=== PATIENT | male | born 1980 | race Hispanic/Latino ===

== ENCOUNTER 2016-10-11 12:50 | Observation (INO) | payer OTHER ==
[~2016-10-11] VITALS: Ht 177.8 cm; Wt 77.1 kg
--- NOTE | 2016-10-11 12:55 | NUR ---
PT TO ED WITH C/O "UNABLE TO PEE, IT HAS HAPPENED BEFORE, I WENT TO THE WALK IN AND THEY GAVE ME CIPRO AND FLOMAX, HELPING A LITTLE". "THIS ALWAYS HAPPENS WHEN I'M SUPER STRESSED".
--- NOTE | 2016-10-11 13:19 | NUR ---
URINE CUP PROVIDED FOR SAMPLE
--- NOTE | 2016-10-11 13:34 | ED GI/GU/ABDOMINAL COMPLAINT ---
History of Present Illness General Chief Complaint: Male Genitourinary Problems Stated Complaint: UNABLE TO URINATE Source: patient, old records Exam Limitations: no limitations Allergies Coded Allergies: No Known Allergies (10/11/16) Reconcile Medications Ciprofloxacin HCl 500 MG TABLET 1 TAB PO BID ANTIBIOTIC, INFECTION (Reported) Ciprofloxacin HCl (Cipro) 500 MG TABLET 1 TAB PO BID UTI Tamsulosin HCl 0.4 MG CAP.ER.24H 1 CAP PO DAILY URINE (Reported) Triage Note: PT TO ED WITH C/O "UNABLE TO PEE, IT HAS HAPPENED BEFORE, I WENT TO THE WALK IN AND THEY GAVE ME CIPRO AND FLOMAX, HELPING A LITTLE". "THIS ALWAYS HAPPENS WHEN I'M SUPER STRESSED". Triage Nurses Notes Reviewed? yes Onset: Gradual Duration: week(s): (3-4), constant, getting worse Timing: recent history Quality/Severity: moderate, PRESSURE Severity Numbers: 5 Location: suprapubic Radiation: no radiation Activities at Onset: none Prior Abdominal Problems: similar symptoms No Modifying Factors: none Associated Symptoms: DENIES HPI: 36-year-old male with no known medical history who presents to emergency room with a history over the past 3-4 weeks of progressively worsening urinary retention. The patient states she's had similar episodes before when he is over stressed. He went to an urgent care 5 days ago and was prescribed Flomax and Cipro however he states he did not have his urine tested at the time. He reports the positive urgency, and states that he saw what appeared to be a small amount of blood in his urine today. He is complaining of suprapubic abdominal pressure that is nonradiating. No fever no chills no nausea no vomiting. He states the episodes have resolved on their own in the past. 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 He denies any back pain, no family history as far as he is aware of prostate cancer. The patient is sexually active with his , he denies history of sexual transmitted disease. No penile or scrotal pain. (HUNG JULIO,ALYSHA) Vital Signs & Intake/Output Vital Signs & Intake/Output Vital Signs Date Time Temp Pulse Resp B/P Pulse O2 O2 Flow FiO2 Ox Delivery Rate 10/11 1710 92 16 117/74 97 Room Air 10/11 1704 96.2 10/11 1511 59 18 123/69 98 Room Air 10/11 1256 98.1 88 20 142/91 99 Room Air Room Air Past History Travel History Traveled to [place] past 21 day No Medical History Any Pertinent Medical History? 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 No (ALYSHA BURKS) Review of Systems Review of Systems Constitutional: Reports: see HPI. All Other Systems: Reviewed and Negative Comments Review of systems: See HPI, All other systems negative. Constitutional, no chills no fever, no malaise HEENT: No visual changes no sore throat no congestion, no ear pain Cardiovascular: No chest pain , no palpitation , Skin, no jaundice no rashes, no change in skin Respiratory: No dyspnea no cough no sputum GI: No nausea no vomiting, no diarrhea, no bloating/constipation : No dysuria hematuria, no frequency, no discharge Muscle skeletal: No joint pain, no joint swelling, no back pain, no neck pain, Neurologic: No numbness, no headache Psych: No stress Heme/endocrine: No bruising no bleeding Immunology: No lymphadenopathy, (ALYSHA BURKS) Physical Exam Physical Exam General Appearance: well developed/nourished, no apparent distress, alert, awake Gastrointestinal: normal bowel sounds, soft, non-tender Comments: Well-developed well-nourished person in no acute distress HEENT: Normal EENT exam; PERRL, EOMI, HEAD is atraumatic. moist mucous membranes. Neck: Supple, normal range of motion Back: Nontender, no CVA tenderness. Full range of motion Cardiovascular: Regular rate and rhythms no murmurs rubs Respiratory: No respiratory distress. Patient speaking in full complete sentences. Breath sounds clear to auscultation bilaterally: NO W/R/R Abdomen: Soft, nontender nondistended, no appreciable organomegaly. Normal bowel sounds. No rebound/guarding, Extremity: No edema, full range of motion of extremities Neuro: Alert oriented x3, motor sensory normal. There were no obvious focal neurologic abnormalities. Skin: No appreciable rash on exposed skin, skin is warm and dry. Psych: Mood and affect is normal, memory and judgment is normal. Core Measures ACS in differential dx? No Severe Sepsis Present: No Septic Shock Present: No (HUNG JULIO,ALSYHA) Progress Differential Diagnosis: urinary retention and UTI pyelonephritis kidney stone urethritis section transmitted disease malignancy prostatitis, bph, anxiety Diagnostic Imaging: Viewed by Me: CT Scan. Discussed w/RAD: CT Scan. Radiology Impression: PATIENT: ADEOLA LOPEZ PRESENT AGE: 36 PATIENT ACCOUNT NO: [id number] : 82 LOCATION: [facility] ORDERING PHYSICIAN: ALYSHA JULIO SERVICE DATE: 10/11/16 EXAM TYPE: CAT - CT ABD & PELVIS W/O IV CONTRAS EXAMINATION: CT ABDOMEN AND PELVIS WITHOUT CONTRAST CLINICAL INFORMATION: Hematuria. Urinary retention. Evaluate for kidney stone. COMPARISON: None. TECHNIQUE: Multidetector volumetric imaging was performed from the superior aspect of the liver through the pubic symphysis. Sagittal and coronal reformatted images were obtained on the technologist workstation. DLP: 316.07 mGy-cm. FINDINGS: LUNG BASES: The visualized lung bases are unremarkable. LIVER, GALLBLADDER, AND BILIARY TREE: The liver is normal in size, shape, and attenuation. No focal hepatic lesion on noncontrast imaging. No biliary ductal dilatation is present. The gallbladder is unremarkable with no evidence of radiopaque gallstones, gallbladder wall thickening, or obvious pericholecystic inflammatory changes. PANCREAS, SPLEEN, ADRENAL GLANDS: Unremarkable on noncontrast imaging. KIDNEYS AND URETERS: The kidneys are normal in size, shape, and attenuation. No hydronephrosis, hydroureter, or calculi seen. No perinephric stranding. BLADDER/URETHRA/PELVIC ORGANS: There is a 0.5 cm calcification with mean attenuation values of 607 Hounsfield units in the midline base of the prostate gland, in the expected region of the prostatic urethra, raising the suspicion of a calculus lodged within the urethra. Alternatively, this calculus may be within adjacent prostatic parenchyma. Prostate is otherwise unremarkable. Seminal vesicles are symmetric. GASTROINTESTINAL TRACT: There is nonspecific mild fluid distention of the loop of jejunum in the left mid abdomen with a few air-fluid levels. No significant wall thickening or surrounding hyperemia is seen in these findings are of uncertain etiology and significance. Remainder of the small and large bowel are unremarkable. The appendix is unremarkable. ABDOMINAL WALL: There is a small umbilical hernia, containing fat only. LYMPH NODES, VASCULAR: Unremarkable. OSSEOUS STRUCTURES: Unremarkable. IMPRESSION: 1. Dense 0.5 cm calcification seen in the expected location of the proximal prostatic urethra. Given the clinical symptoms of urinary retention and hematuria, findings are suspicious for a proximal prostatic urethral stone. Close clinical correlation is requested. 2. Nonspecific mild fluid distention of a loop of jejunum in the left mid abdomen with a few scattered air-fluid levels. Findings may represent a localized ileus. No associated inflammatory changes are seen in the surrounding soft tissues. 3. Small fat-containing umbilical hernia. DICTATED BY: KATY JAMES MD DATE/ TIME DICTATED:10/11/161444 BOARD WINDER:ALLA DATE/TIME TRANSCRIBED: 10/11/161444 CONFIDENTIAL, DO NOT COPY WITHOUT APPROPRIATE AUTHORIZATION. < Electronically signed in Other Vendor System> SIGNED BY: KATY JAMES MD 10/11/16 1501 Initial ED EKG: none (ALYSHA BURKS) Plan of Care: Orders Procedure Date/time Status Giles, Insertion/Removal/Asses 10/11 1522 Active CULTURE,URINE 10/11 1522 Active URINALYSIS 10/11 1329 Complete CBC WITHOUT DIFFERENTIAL 10/11 1329 Complete BASIC METABOLIC PANEL 10/11 1329 Complete Laboratory Tests 10/11/16 1340: Urine Color YEL, Urine Clarity CLEAR, Urine pH 6.0, Ur Specific [employer] 1.025, Urine Protein 30 H, Urine Ketones NEG, Urine Nitrite NEG, Urine Bilirubin NEG, Urine Urobilinogen 0.2, Ur Leukocyte Esterase TRACE H, Ur Microscopic SEDIMENT EXAMINED, Urine RBC 3-5, Urine WBC RARE, Ur Epithelial Cells FEW, Urine Hemoglobin SMALL H, Urine Glucose NEG 10/11/16 1338: Anion Gap 10, Estimated GFR > 60, BUN/Creatinine Ratio 21.3, Glucose 90, Calcium 9.6, CBC w Diff NO MAN DIFF REQ, RBC 5.22, MCV 92.3, MCH 31.1 H, RDW 12.5, MPV 8.8, Gran % 63.0, Lymphocytes % 23.3, Monocytes % 6.8, Eosinophils % 6.2 H, Basophils % 0.7, Absolute Granulocytes 4.4, Absolute Lymphocytes 1.6, Absolute Monocytes 0.5, Absolute Eosinophils 0.4, Absolute Basophils 0, PUBS MCHC 33.7 Microbiology 10/11 1522 URINE ROUT: Urine Culture - ORD Labs ordered old records reviewed and ordered case discussed with Dr. patel patient denies N clinic for pain when case d/w dr mcgarry regarding the patient's CAT scan she advised to place a Giles catheter and follow up in the office this week 10/11/2016 3:43:49 PM Giles catheter was attempted to be placed, that was unsuccessfully passed through obstruction with return of immediate sharon blood and significant pain the catheter was removed a repeat call was placed to urology offered at this time [address] mcgarry once again, she will come in to eval pt and take to OR for cystoscopy/stone retreival,toradol 30mg iv ordered (ALYSHA BURKS) Departure Departure Time of Disposition: 1622 Disposition: STILL A PATIENT Condition: Stable Clinical Impression Primary Impression: Urethral stone Secondary Impressions: Urinary retention Referrals: PATIENT HAS NO PRIMARY CARE DR (PCP/Family) SANDI NICHOLS MD Additional Instructions: FOLLOW UP WITH DR. BOYLE UROLOGIST ON THURSDAY TO HAVE GILES CATHETER REMOVED. CIPRO DIRECTED FOR PROPHLYAXIS. RETURN AT ANYTIME SOONER WITH ANY CONCERNS- WORSENING PAIN, DECREAESED URINE OUTPUT IN GILES, FEVER, CHILLS OR ANY OTHER CONCERNS. Departure Forms: Customer Survey General Discharge Information Prescriptions: Current Visit Scripts Ciprofloxacin HCl (Cipro) 1 TAB PO BID #14 TAB (ALYSHA BURKS) PA/ENVIRONMENTAL FIELD SERVICES TECHNICIAN Co-Sign Statement Statement: ED Attending supervision documentation- [] I saw and evaluated the patient. I have also reviewed all the pertinent lab results and diagnostic results. I agree with the findings and the plan of care as documented in the PA's/ENVIRONMENTAL FIELD SERVICES TECHNICIAN's documentation. [X] I have reviewed the ED Record and agree with the PA's/ENVIRONMENTAL FIELD SERVICES TECHNICIAN's documentation. [] Additions or exceptions (if any) to the PAs/ENVIRONMENTAL FIELD SERVICES TECHNICIAN's note and plan are summarized below: [] (ALENA JESSICA,BOB Larson)
--- NOTE | 2016-10-11 13:42 | NUR ---
BLOODWORK OBTAINED AND SENT VIA S/S. CLEAR TOP URINE SENT TO LAB AND PLASTICS PRODUCTION MACHINE OPERATOR INFORMED OF MINIMAL SAMPLE AVAILABLE FOR TESTING. PT OFFERS NO COMPLAINTS AT THIS TIME. INFORMED WAITING PROVIDED
[2016-10-11 14:04] LABS: ABSOLUTE BASOPHIL COUNT 0 /CUMM (0.0-0.2); ABSOLUTE EOSINOPHIL COUNT 0.4 /CUMM (0.0-0.7); ABSOLUTE GRANULOCYTE CT 4.4 /CUMM (1.4-6.5); ABSOLUTE LYMPH COUNT 1.6 /CUMM (1.2-3.4); ABSOLUTE MONOCYTE COUNT 0.5 /CUMM (0.10-0.60); BASOPHIL % 0.7 % (0.0-2.0); EOSINOPHIL % 6.2 % (0-5); HEMATOCRIT 48.2 % (42-52); MEAN CORPUSCULAR HGB 31.1 PG (27.0-31.0); MEAN CORPUSCULAR HGB CONC 33.7 G/DL (33.0-37.0); MEAN CORPUSCULAR VOLUME 92.3 FL (80.0-94.0); MEAN PLATELET VOLUME 8.8 FL (7.4-10.4); PLATELET COUNT 247 /CUMM (130-400); RBC DISTRIBUTION WIDTH 12.5 % (11.5-14.5); RED BLOOD CELL CT 5.22 /CUMM (4.70-6.10)
[2016-10-11] MEDS ORDERED: CIPROFLOXACIN500 M2 PO (14:13)
[2016-10-11] MEDS ORDERED: TAMSULOSIN HCL0.4 M1 PO (14:14)
--- NOTE | 2016-10-11 14:20 | NUR ---
NORI PERSAUD AT BEDSIDE TO DISCUSS TEST RESULTS AND DISPO
--- NOTE | 2016-10-11 14:44 | NUR ---
PT TO AND FROM CT
--- NOTE | 2016-10-11 15:01 | CT SCAN REPORT ---
EXAMINATION: CT ABDOMEN AND PELVIS WITHOUT CONTRAST CLINICAL INFORMATION: Hematuria. Urinary retention. Evaluate for kidney stone. COMPARISON: None. TECHNIQUE: Multidetector volumetric imaging was performed from the superior aspect of the liver through the pubic symphysis. Sagittal and coronal reformatted images were obtained on the technologist workstation. DLP: 316.07 mGy-cm. FINDINGS: LUNG BASES: The visualized lung bases are unremarkable. LIVER, GALLBLADDER, AND BILIARY TREE: The liver is normal in size, shape, and attenuation. No focal hepatic lesion on noncontrast imaging. No biliary ductal dilatation is present. The gallbladder is unremarkable with no evidence of radiopaque gallstones, gallbladder wall thickening, or obvious pericholecystic inflammatory changes. PANCREAS, SPLEEN, ADRENAL GLANDS: Unremarkable on noncontrast imaging. KIDNEYS AND URETERS: The kidneys are normal in size, shape, and attenuation. No hydronephrosis, hydroureter, or calculi seen. No perinephric stranding. BLADDER/URETHRA/PELVIC ORGANS: There is a 0.5 cm calcification with mean attenuation values of 607 Hounsfield units in the midline base of the prostate gland, in the expected region of the prostatic urethra, raising the suspicion of a calculus lodged within the urethra. Alternatively, this calculus may be within adjacent prostatic parenchyma. Prostate is otherwise unremarkable. Seminal vesicles are symmetric. GASTROINTESTINAL TRACT: There is nonspecific mild fluid distention of the loop of jejunum in the left mid abdomen with a few air-fluid levels. No significant wall thickening or surrounding hyperemia is seen in these findings are of uncertain etiology and significance. Remainder of the small and large bowel are unremarkable. The appendix is unremarkable. ABDOMINAL WALL: There is a small umbilical hernia, containing fat only. LYMPH NODES, VASCULAR: Unremarkable. OSSEOUS STRUCTURES: Unremarkable. IMPRESSION: 1. Dense 0.5 cm calcification seen in the expected location of the proximal prostatic urethra. Given the clinical symptoms of urinary retention and hematuria, findings are suspicious for a proximal prostatic urethral stone. Close clinical correlation is requested. 2. Nonspecific mild fluid distention of a loop of jejunum in the left mid abdomen with a few scattered air-fluid levels. Findings may represent a localized ileus. No associated inflammatory changes are seen in the surrounding soft tissues. 3. Small fat-containing umbilical hernia.
[2016-10-11] MEDS ORDERED: CIPRO500 M1 PO (15:23)
--- NOTE | 2016-10-11 15:36 | NUR ---
ATTEMPTED TO INSERT 18 BENGALI GILES CATHETER PER UROLOGIST'S REQUEST. EXTREME RESISTANCE MET. SMALL AMOUNT OF BLOOD NOTED IN DRAINAGE TUBE. PT TOLERATED WELL BUT WAS EXTREMELY PAINFUL
--- NOTE | 2016-10-11 17:12 | NUR ---
TAKEN TO OR BY ANESTHESIA
--- NOTE | 2016-10-11 19:28 | Cons- Urology ---
General Information and HPI Consulting Request Date of Consult: 10/11/16 Requested By: ER Reason for Consult: urinary retention Source of Information: patient Exam Limitations: no limitations History of Present Illness: 36 yo male with an onset of sudden inability to urinate. he has had this happen 3-4 times before over the course of 5yrs. He had no dysuria or N/V/F/C. NO flank pain. 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 He has not urinated since this morning. A foey catheter was attempted to be placed in the ER but this was unsuccessful. A CT scan suggested a stone was in the penile urethra. He has no hx of UTIs or prostate infections, hematuria or kidney stones. He believes his father has had kidney stones. He has a long smoking hx since age 20yo. (1/2ppd for 16 yrs). Allergies/Medications Allergies: Coded Allergies: No Known Allergies (10/11/16) Home Med List: Ciprofloxacin HCl 500 MG TABLET 1 TAB PO BID ANTIBIOTIC, INFECTION (Reported) Ciprofloxacin HCl (Cipro) 500 MG TABLET 1 TAB PO BID UTI Tamsulosin HCl 0.4 MG CAP.ER.24H 1 CAP PO DAILY URINE (Reported) Current Medications: Current Medications Sig/Durga Start time Last Medication Dose Route Stop Time Status Admin Ketorolac 0 .STK-MED ONE 10/11 1602 DC Tromethamine .ROUTE Ketorolac 30 MG ONCE ONE 10/11 1600 DC 10/11 Tromethamine IV 10/11 1601 1604 Past History Medical History Blood Transfusion Hx: No Neurological: NONE EENT: NONE Cardiovascular: NONE Respiratory: NONE Gastrointestinal: NONE Hepatic: NONE Renal: NONE Musculoskeletal: NONE (left shoulder dislocation) Psychiatric: NONE Endocrine: NONE Blood Disorders: NONE Cancer(s): 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 Home Who Do You Live With? spouse Services at Home: None Primary Language: Honduran Smoking Status: Current Everyday Smoker ETOH Use: occasional use Illicit Drug Use: marijuana Living Will? unknown Power of Glass Washer And Carrier/HCP? unknown Other Social History: studying for bar Functional Ability ADLs Independent: dressing, eating, toileting, bathing. Ambulation: independent IADLs Independent: shopping, housework, finances, food prep, telephone, transportation , medication admin. Employment History Employment: Employed Retired? no Review of Systems Review of Systems Constitutional: Reports: no symptoms. EENTM: Reports: no symptoms. Cardiovascular: Reports: no symptoms. Respiratory: Reports: no symptoms. GI: Reports: no symptoms. Musculoskeletal: Reports: no symptoms. Skin: Reports: no symptoms. Neurological/Psychological: Reports: no symptoms. Hematologic/Endocrine: Reports: no symptoms. Immunologic/Allergic: Reports: no symptoms. Exam & Diagnostic Data Vital Signs and I&O Vital Signs Date Time Temp Pulse Resp B/P Pulse O2 O2 Flow FiO2 Ox Delivery Rate 10/11 1710 92 16 117/74 97 Room Air 10/11 1704 96.2 10/11 1511 59 18 123/69 98 Room Air 10/11 1256 98.1 88 20 142/91 99 Room Air Room Air Intake & Output 10/11 1600 10/11 0800 10/11 0000 10/10 1600 10/10 0800 10/10 0000 Intake Total Output Total 10 Balance -10 Output, Urine 10 Patient 77.111 kg Weight Physical Exam General Appearance: well developed/nourished, no apparent distress, alert, awake , anxious, comfortable Head: atraumatic, normal appearance Eyes: Bilateral: normal appearance. Ears, Nose, Throat: normal ENT inspection Neck: normal inspection Respiratory: normal breath sounds, no respiratory distress Gastrointestinal: soft, non-tender, distention Rectal: deferred Back: normal inspection Extremities: normal inspection, no edema Neurologic/Psych: awake, alert, oriented x 3, normal gait Cranial Nerves: normal hearing, normal speech Skin: intact, normal color, warm/dry Reproductive: Normal male genitalia Last 24 Hours of Labs: Laboratory Tests 10/11 10/11 1340 1338 Chemistry Sodium (137 - 145 mmol/L) 139 Potassium (3.5 - 5.1 mmol/L) 4.5 Chloride (98 - 107 mmol/L) 104 Carbon Dioxide (22 - 30 mmol/L) 26 Anion Gap (5 - 16) 10 BUN (9 - 20 mg/dL) 17 Creatinine (0.7 - 1.2 mg/dL) 0.8 Estimated GFR (>60 ml/min) > 60 BUN/Creatinine Ratio (7 - 25 %) 21.3 Glucose (65 - 99 mg/dL) 90 Calcium (8.4 - 10.2 mg/dL) 9.6 Hematology CBC w Diff NO MAN DIFF REQ WBC (4.8 - 10.8 /CUMM) 7.0 RBC (4.70 - 6.10 /CUMM) 5.22 Hgb (14.0 - 18.0 G/DL) 16.2 Hct (42 - 52 %) 48.2 MCV (80.0 - 94.0 FL) 92.3 MCH (27.0 - 31.0 PG) 31.1 H RDW (11.5 - 14.5 %) 12.5 Plt Count (130 - 400 /CUMM) 247 MPV (7.4 - 10.4 FL) 8.8 Gran % (42.2 - 75.2 %) 63.0 Lymphocytes % (20.5 - 51.1 %) 23.3 Monocytes % (1.7 - 9.3 %) 6.8 Eosinophils % (0 - 5 %) 6.2 H Basophils % (0.0 - 2.0 %) 0.7 Absolute Granulocytes (1.4 - 6.5 /CUMM) 4.4 Absolute Lymphocytes (1.2 - 3.4 /CUMM) 1.6 Absolute Monocytes (0.10 - 0.60 /CUMM) 0.5 Absolute Eosinophils (0.0 - 0.7 /CUMM) 0.4 Absolute Basophils (0.0 - 0.2 /CUMM) 0 PUBS MCHC (33.0 - 37.0 G/DL) 33.7 Urines Urine Color (YEL,AMB,STR) YEL Urine Clarity (CLEAR) CLEAR Urine pH (5.0 - 8.0) 6.0 Ur Specific [place] (1.001 - 1.035) 1.025 Urine Protein (NEG,<30 MG/DL) 30 H Urine Ketones (NEG) NEG Urine Nitrite (NEG) NEG Urine Bilirubin (NEG) NEG Urine Urobilinogen (0.1 - 1.0 EU/dl) 0.2 Ur Leukocyte Esterase (NEG) TRACE H Ur Microscopic SEDIMENT EXAMINED Urine RBC (0 - 5 /HPF) 3-5 Urine WBC (0 - 2 /HPF) RARE Ur Epithelial Cells (NONE,FEW) FEW Urine Hemoglobin (NEG) SMALL H Urine Glucose (N MG/DL) NEG Imaging Results: CT scan with question of prostatic urethra stone Assessment/Plan Assessment/Plan 36yo male with a hx of urinary retention multiple times in the last 5 yrs who presented to the ER for the same reason. CT scan suggested an obstructing urethral stone. Unsuccessful attemtp at passing a tyler in the ER. Patient refused further attempts at the bedside. He was consented for OR for possible stone extraction, possible catheter placement. Risks, benefits, alternatives given and all questions answered. He has been NPO since this morning. Problem List: 1. Urinary retention Consult Acknowledgment - Thank you for your consult request.
--- NOTE | 2016-10-11 19:36 | Operative Report ---
Operative/Inv Procedure Report Surgery Date: 10/11/16 Name of Procedure: cystoscopy, stone extraction Pre-Operative Diagnosis: urinary retention Post-Operative Diagnosis: same Estimated Blood Loss: 50ml to 100ml Surgeon/Management Trainer: XAVI WAY MD Anesthesia: laryngeal mask airway Drains: 22fr 3 way coude Specimens: prostate chips Complications: no urethral stone found. multiple false passages in the urethra so difficult to find true urethral opening Condition: stable Operative Indication: urinary retention Operative/Procedure Note Note: 36yo male with multiple episodes of urinary retention in the last 5 yrs. He has one presently and requires OR intervention as bedside intervention failed. He was consented for cystoscopy, stone extraction. R/B/A given and all questions answered. Patient taken to operating room and placed in the supine position. Time out was performed and LMA anesthesia was given. No antibiotics were given as he took cipro earlier in the day. He was placed in the dorsal lithotomy position and prepped and draped in the standard sterile fashion. A cystoscope was placed in the urethra and attempted to be placed in the bladder but multiple false passages were identified. A wire ultimately had to be used to try and find the true urethral passage. An ulstrasound was also used for guidance a the suprapubic area. Eventually the cystoscope was passed and the bladder was entered. There were no stones in the bladder. The bladder was globally inspected and bilateral ureteral orifices were easily identified. NO trabeculation or diverticula. The prostate was then viewed and found to be very high riding and with a tight bladder neck. This was resected using the resectoscope. The prostate was not enlarged but it was occluding the opening of the bladder. Once the opening seemed to be adequate without resecting too much tissue bleeding was coagulated. The ureters were not injured. A 3way coude 22fr catheter was placed due to continual bleeding even after all bleeders were coagulated. patient tolerated the procedure well. Findings: small prostate but with obstructing anatomy with tight bladder neck no urethral stone or prostatic stone or bladder stone. Discharge Disposition: PACU
[2016-10-11 20:06] VITALS: BP 110/63
[2016-10-11 22:25] VITALS: BP 110/86
[2016-10-12 07:25] VITALS: BP 112/80
--- NOTE | 2016-10-12 12:35 | PN- Urology ---
Subjective Subjective: Comfortable, No distress Objective Vital Signs and I&Os Vital Signs Date Time Temp Pulse Resp B/P Pulse O2 O2 Flow FiO2 Ox Delivery Rate 10/12 0725 98.7 67 20 112/80 96 Room Air 10/11 2225 98.0 50 20 110/86 95 Room Air 10/11 2006 94.1 66 18 110/63 95 Room Air 10/11 1710 92 16 117/74 97 Room Air 10/11 1704 96.2 10/11 1511 59 18 123/69 98 Room Air 10/11 1256 98.1 88 20 142/91 99 Room Air Room Air Intake & Output 10/12 1600 10/12 0800 10/12 0000 10/11 1600 10/11 0800 10/11 0000 Intake Total 480 960 Output Total 1100 1050 10 Balance -620 -90 -10 Intake, IV 600 Intake, Oral 480 360 Output, Urine 1100 1050 10 Patient 170 lb 170 lb Weight Back: No CVA tenderness Abd: soft and non tender Genitalia: 3-way tyler in place. CBI running at slow rate. Drainage is clear Extrems: no calf tenderness Assessment/Plan Assessment/Plan Imp: s/p TURBN and tyler placement post op hematuria improved Plan: D/C CBI. Restart if hematuria recurs Continue tyler If urine is clear in AM then voiding trial tomorrow Core Measures/Miscellaneous Venous Thromboembolism VTE Risk Factors: No Risk Factors VTE Contraindications: No Contraindications VTE Prophylaxis Ordered Inpt: Early Ambulation VTE Diagnosis: No Beta Obie Is Beta Obie a Home Med? No Antibiotics Is Patient on Antibiotics? No
[2016-10-12 14:28] VITALS: BP 122/70
[2016-10-12 23:09] VITALS: BP 102/60
[2016-10-13 06:04] VITALS: BP 110/60
--- NOTE | 2016-10-13 06:58 | PN- Urology ---
Subjective Subjective: No distress. Resting comfortably. CBI was shut off yesterday but had to be restarted due to hematuria Objective Vital Signs and I&Os Vital Signs Date Time Temp Pulse Resp B/P Pulse O2 O2 Flow FiO2 Ox Delivery Rate 10/13 0604 98.0 78 20 110/60 95 Room Air 10/12 2309 98.2 86 20 102/60 95 Room Air 10/12 1428 98.7 86 18 122/70 94 Room Air 10/12 0725 98.7 67 20 112/80 96 Room Air Intake & Output 10/13 0800 10/13 0000 10/12 1600 10/12 0800 10/12 0000 10/11 1600 Intake Total 500 600 480 960 Output Total 300 1250 1100 1050 10 Balance 200 -650 -620 -90 -10 Intake, IV 600 Intake, Oral 500 600 480 360 Output, Urine 300 1250 1100 1050 10 Patient 170 lb 170 lb Weight Abd: soft and non tender Genitalia: 3 way ty[address] in [address]. CBI running at slow rate and drainage is clear Extrems: venodynes in place Assessment/Plan Assessment/Plan Imp: s/p TURBN post op hematuria seems improved Plan: Turn off CBI, restart for recurrent hematuria Continue tyler Hopeful for voiding trial tomorrow Core Measures/Miscellaneous Venous Thromboembolism VTE Risk Factors: No Risk Factors VTE Contraindications: No Contraindications VTE Prophylaxis Ordered Inpt: Early Ambulation VTE Diagnosis: No Beta Obie Is Beta Obie a Home Med? No Antibiotics Is Patient on Antibiotics? No
[2016-10-13 14:25] VITALS: BP 125/70
--- NOTE | 2016-10-13 16:15 | NUR ---
CBI STOPPED AT [address] APARICIO ORDER. AT 1030 PINK URINE NOTED IN GILES BAG. NOTIFIED DR. APARICIO OF HEMATURIA AND WAS TOLD NOT TO RESTART CBI AND KEEP AN EYE ON URINE. WILL CONTINUE TO MONITOR.
[2016-10-13 23:30] VITALS: BP 116/68
--- NOTE | 2016-10-14 06:42 | PN- Urology ---
Subjective Subjective: No distress Objective Vital Signs and I&Os Vital Signs Date Time Temp Pulse Resp B/P Pulse O2 O2 Flow FiO2 Ox Delivery Rate 10/13 2330 98.5 73 20 116/68 94 Room Air 10/13 1425 98.2 90 20 125/70 95 Intake & Output 10/14 0800 10/14 0000 10/13 1600 10/13 0800 10/13 0000 10/12 1600 Intake Total 541 734 3828 300 500 600 Output Total 650 600 875 376 859 8896 Balance -500 -190 125 -250 200 -650 Intake, IV 10 Intake, Oral 150 400 750 300 500 600 Intake, Other 250 Number 0 Bowel Movements Output, Urine 650 600 875 115 511 1867 Abd: soft and non tender Genitalia: 3-way tyler in place. CBI off. Urine clear Extrems: no calf tenderness Assessment/Plan Assessment/Plan Imp: s/p TUBN Plan: tyler d/c'ed d/c percocet and benedryl start pyridium and flomax Home later today if voids adequately Core Measures/Miscellaneous Venous Thromboembolism VTE Risk Factors: No Risk Factors VTE Contraindications: No Contraindications VTE Prophylaxis Ordered Inpt: Early Ambulation VTE Diagnosis: No Beta Obie Is Beta Obie a Home Med? No Antibiotics Is Patient on Antibiotics? No
[2016-10-14 06:54] VITALS: BP 116/80
--- NOTE | 2016-10-14 12:30 | NUR ---
CALLED INTO ROOM BY PT, PT C/O PELVIC DISCOMFORT, PT UNABLE TO VOID, PT BLADDER SCANNED FOR 550ML.'S NOTIFIED, MD ORDERED 16 COUDE CATH, PT REQUESTING TO BE KNOCKED OUT FOR GILES INSERTION, PT INFORMED WE DO NOT PUT PATIENTS TO SLEEP ON GEN-MED FOR GILES PLACEMENT. PT'S REQUESTING UROLOGY TO PLACE GILES AND NOT NURSING. MD INFORMED OF ABOVE, PT INFORMED MD NOT IN HOSPITAL, IF HE WANTS MD TO PLACE GILES IT WILL BE IN 1-2 HOURS. CONTINUE TO MONITOR,
[2016-10-14 15:32] VITALS: BP 100/80
--- NOTE | 2016-10-14 18:48 | NUR ---
pt reqesting stool softener stated LBM was three days ago. +bs, tolerating po intake well, call placed to surgical pa at this time.
[2016-10-14 22:20] VITALS: BP 132/84
[2016-10-15 06:27] VITALS: BP 124/80
[2016-10-15 08:48] VITALS: BP 124/80
--- NOTE | 2016-10-15 09:53 | PN- Urology ---
Subjective Subjective: comfortable Objective Vital Signs and I&Os Vital Signs Date Time Temp Pulse Resp B/P Pulse O2 O2 Flow FiO2 Ox Delivery Rate 10/15 0848 65 124/80 10/15 0627 98.1 65 18 124/80 96 Room Air 10/14 2220 98.4 61 20 132/84 95 Room Air 10/14 1532 97.7 72 20 100/80 95 Room Air Intake & Output 10/15 1600 10/15 0800 10/15 0000 10/14 1600 10/14 0800 10/14 0000 Intake Total 800 600 150 410 Output Total 1500 1000 1200 650 600 Balance -1500 -200 -600 -500 -190 Intake, IV 10 Intake, Oral 800 600 150 400 Number 0 Bowel Movements Output, Urine 1500 1000 1200 650 600 Back: no CVA tenderness Abd: soft and nontender Genitalia: tyler in place draining pryidium-colored urine Extrems: no calf tenderness Assessment/Plan Assessment/Plan Imp: urinary retention. Cause not clear Plan: Discharge home with tyler on tamsulosin Office f/u in 5-7 days for voiding trial Core Measures/Miscellaneous Venous Thromboembolism VTE Risk Factors: No Risk Factors VTE Contraindications: No Contraindications VTE Prophylaxis Ordered Inpt: Early Ambulation VTE Diagnosis: No Beta Obie Is Beta Obie a Home Med? No Antibiotics Is Patient on Antibiotics? No
--- NOTE | 2016-10-19 11:20 | Discharge Summary ---
Visit Information Visit Dates Admission Date: 10/11/16 Discharge Date: 10/15/16 Hospital Course Course Attending Physician: XAVI CHRISTINA MD Primary Care Physician: PATIENT HAS NO PRIMARY CARE DR Hospital Course: He was in urinary retention and a tyler could not be placed. He was taken to the OR by Dr Christina. A small resection of the bladder neck/prostate was done and a tyler placed. Multiple false passage were noted in the urethra. He had some post op hematuria which cleared with conservative measures. He was given an inpatient voiding trial but failed. A coude tyler was placed and he was discharged home with the tyler in place, on flomax, and will have an outpatient voiding trial Complications: none Allergies: Coded Allergies: No Known Allergies (10/11/16) Significant Procedures: TURP/TURBN Disposition Summary Disposition Principal Diagnosis: Urinary retention Additional Diagnosis: none Discharge Disposition: home or self care Discharge Instructions General Discharge Information Code Status: Full Code Patient's Diet: Regular Patient's Activity: Light only Follow-Up Instructions/Appts: To call office to arragne outpatient voiding trial Medications at Discharge Discharge Medications: Stop taking the following medications: Ciprofloxacin HCl (Ciprofloxacin HCl) 500 MG TABLET ORAL TWICE DAILY Qty = 14 Ciprofloxacin HCl (Cipro) 500 MG TABLET ORAL TWICE DAILY Qty = 14 Continue taking these medications: Tamsulosin HCl (Tamsulosin HCl) 0.4 MG CAP.ER.24H 1 Capsule ORAL DAILY Qty = 10 Copies To: XAVI CHRISTINA MD
== END 2016-10-15 11:00 ==
LOC: ENRESERVTM → ENRESERVDT → ERH 12:50 → ER-OR 13:02 → ERH 13:02 → ER-OR 18:37 → 2NA 18:37 → ENPENDDIS 18:54 → PACUH 18:54 → 2NA 18:54
PROVIDERS: Physician Assistant Medical; ADMIT Urology
DX: N42.9 Disorder of prostate, unspecified (principal); R33.8 Other retention of urine; N41.9 Inflammatory disease of prostate, unspecified; F17.200 Nicotine dependence, unspecified, uncomplicated
CPT/HCPCS: 74176; 81001; 87086; 88305; 96374; G0378; J0131; J1100; J1170; J1885; J2250; J2405; J3010; J3101

== ENCOUNTER 2016-10-23 19:34 | Emergency (ER) | payer OTHER ==
[~2016-10-23] VITALS: Ht 177.8 cm; Wt 77.1 kg
[~2016-10-23 19:34] MED LIST: CIPRO500 M1 PO; CIPROFLOXACIN500 M2 PO; TAMSULOSIN HCL0.4 M1 PO
--- NOTE | 2016-10-23 21:32 | ED GI/GU/ABDOMINAL COMPLAINT ---
History of Present Illness General Chief Complaint: Male Genitourinary Problems Stated Complaint: UNABLE TO URINATE Source: patient, old records, PCP (UROLOGY) Exam Limitations: no limitations Vital Signs & Intake/Output Vital Signs & Intake/Output Vital Signs Date Time Temp Pulse Resp B/P Pulse O2 O2 Flow FiO2 Ox Delivery Rate 10/23 2138 99.3 91 16 148/75 99 Room Air 10/23 2100 99 10/23 1952 98.8 125 18 168/95 95 Room Air Allergies Coded Allergies: No Known Allergies (10/11/16) Reconcile Medications Tamsulosin HCl 0.4 MG CAP.ER.24H 1 CAP PO DAILY URINE (Reported) Triage Note: PT SIB UROLOGIST FOR C/O URINARY RETENTION. UROLOGIST CALLED STATING PT NEEDS A 16F COUDE PLACED. PT REPORTS HIS GILES WAS REMOVED THIS MORNING AND HE WAS VOIDING WITHOUT ISSUES UNTIL 5PM WHEN HE SUDDENLY WAS UNABLE TO VOID. SINCE THAT TIME HE HAS BEEN PASSING SMALL AMOUNTS OF BLOODY URINE FREQUENTLY AND IS VERY UNCOMFORTABLE ASKING "CAN'T YOU KNOCK ME OUT?" UPON REVIEWING D/C SUMMARY DATED 10/19/16 PT HAD URINARY RETENTION, BEDSIDE GILES WAS UNSUCCESSFUL, GILES EVENTUALLY PLACED IN OR WITH "MULTIPLE FALSE PASSAGES" NOTED IN URETHRA. PT STATING "I THINK THIS IS CRAZY, IT DIDN'T WORK AT ALL LAST TIME, THAT'S WHY I HAD THE SURGERY, HOW DO THEY THINK IT'S GOING TO WORK NOW?" Triage Nurses Notes Reviewed? yes HPI: 36-year-old male with complaints of urinary frequency urgency and hematuria. He was admitted approximately 10 days ago with a stone in the urethra, he is difficult time getting a Giles catheter and had multiple false passages. He had to go to the OR to have a catheter placed. Since then he has had trouble with urinating, he has had another catheter placed because of urinary retention and continued hematuria. He was at the urologist office this morning, had his catheter pulled, he is able to void spontaneously and without difficulty throughout the day today until around 4:00 PM, he had inability to urinate. He is only urinating small amounts of blood and notes that there are small flecks of blood clots noted in the urine. He has pressure sensation in the suprapubic region and states that he is not emptying his bladder fully. He denies any fever or back pain, no nausea no vomiting. (ROYA CARDENAS) Past History Travel History Traveled to [place] past 21 day No Medical History Any Pertinent Medical History? see below for history Neurological: NONE EENT: NONE Cardiovascular: NONE Respiratory: NONE Gastrointestinal: NONE Hepatic: NONE Renal: NONE Musculoskeletal: NONE (left shoulder dislocation) Psychiatric: NONE Endocrine: NONE Blood Disorders: NONE Cancer(s): NONE SOURCING ANALYST/Reproductive: NONE Other Medical Hx: urinary retention issues History of MRSA: No History of VRE: No History of CDIFF: No Influenza Vaccine: 07/17/16 Surgical History Surgical History: cystoscopy, left shoulder surgery for dislocation Psychosocial History Services at Home None What is your primary language Occitan Family History Hx Contributory? No (ROYA CARDENAS) Review of Systems Review of Systems Constitutional: Reports: see HPI. EENTM: Reports: no symptoms. Respiratory: Reports: no symptoms. Cardiovascular: Reports: no symptoms. GI: Reports: no symptoms. Genitourinary: Reports: see HPI. Musculoskeletal: Reports: no symptoms. Skin: Reports: no symptoms. Neurological/Psychological: Reports: no symptoms. Hematologic/Endocrine: Reports: no symptoms. Immunologic/Allergic: Reports: no symptoms. All Other Systems: Reviewed and Negative (ROYA CARDENAS) Physical Exam Physical Exam Gastrointestinal: normal bowel sounds, soft, distention (MILD SUPRAPUBIC) Comments: Well-developed well-nourished Patient appears uncomfortable, pacing in the room. HEENT: Atraumatic, extraocular motion intact Neck: Supple, no lymphadenopathy Back: Nontender no CVA tenderness Respiratory: No respiratory distress Extremities: No edema, full range of motion Neuro: Alert and oriented x3 Psych: Mood affect normal, normal memory normal judgment. Skin: Warm and dry, no rash on exposed skin Core Measures ACS in differential dx? No Severe Sepsis Present: No Septic Shock Present: No (ROYA CARDENAS) Progress Differential Diagnosis: AAA, appendicitis, biliary colic, bowel obstruction, colon cancer, cholecystitis, diverticulitis, epididymitis, esophageal varices, gastritis, hepatitis, hernia, hemorrhoids, ischemic bowel, inflamm bowel dis, Dinora-Mckenna tear, orchitis, pancreatitis, prostatitis, peptic ulcer, PUD/GERD, perforated viscous, pyelonephritis, SBO, STD, testicular torsion, ureterolithiasis, urinary retention, urethritis, UTI/pyelo Plan of Care: Orders Procedure Date/time Status Giles, Insertion/Removal/Asses 10/24 2019 Complete Current Medications Sig/Durga Start time Last Medication Dose Stop Time Status Admin Lidocaine 10 ML ONCE 10/23 0000 NR (Xylocaine 2%) 10/23 2359 Laboratory Tests 10/23/162019: Urine Color Cancelled, Urine Clarity Cancelled, Urine pH Cancelled, Ur Specific [place] Cancelled, Urine Protein Cancelled, Urine Ketones Cancelled, Urine Nitrite Cancelled, Urine Bilirubin Cancelled, Urine Urobilinogen Cancelled, Ur Leukocyte Esterase Cancelled, Ur Microscopic Cancelled, Urine Hemoglobin Cancelled, Urine Glucose Cancelled Microbiology 10/24 2019 URINE ROUT: Urine Culture - CAN Cancelled: Cancelled via OE: NOT NEEDED Initial ED EKG: none Comments: Discussed with Dr. Lex BOYLE, recommend 16 Somali Giles catheter Coude and Urojet's. Throughout patient's stay he isn't back for the the bathroom numerous times, he was able to pass several small approximately 4 cm blood clots, several times. Each time he is felt significantly better. After approximately the third time going to the bathroom passing small blood clots, patient states that his symptoms have resolved and he feels well. He was monitored for several hours with improvement in his symptoms and he did not require a Giles catheter. A post-residual void was performed with the bladder scanner at the bedside by myself, readings were from 98-150 ML's. Patient is comfortable being discharged home at this time, he will follow-up with urologist tomorrow if there are any further concerns. (ROYA CARDENAS) Departure Departure Disposition: HOME OR SELF CARE Condition: Stable Clinical Impression Primary Impression: Hematuria Secondary Impressions: Urinary retention Referrals: LEX BOYLE MD PATIENT HAS NO PRIMARY CARE DR (PCP/Family) Additional Instructions: Please follow up with Dr. Lex willson in his office in [place] tomorrow with any concerns of urinary frequency urgency or continued passing of blood clots. Drink plenty of water. Avoid straining or excessive physical activity for the next few days Departure Forms: Customer Survey General Discharge Information (ROYA CARDENAS) PA/SENIOR SALES MANAGER Co-Sign Statement Statement: ED Attending supervision documentation- [] I saw and evaluated the patient. I have also reviewed all the pertinent lab results and diagnostic results. I agree with the findings and the plan of care as documented in the PA's/SENIOR SALES MANAGER's documentation. x I have reviewed the ED Record and agree with the PA's/SENIOR SALES MANAGER's documentation. [] Additions or exceptions (if any) to the PAs/SENIOR SALES MANAGER's note and plan are summarized below: [] (MARIA DE JESUS JESSICA,ISABELLA)
[2016-10-23 21:39] VITALS: BP 148/75
== END 2016-10-23 21:40 ==
LOC: ERH 19:34
DX: R31.9 Hematuria, unspecified (principal)
CPT/HCPCS: 87086